=== PATIENT | female | born 1960 | race Caucasian/White ===

== ENCOUNTER 2024-10-07 07:38 | Outpatient (RCR) | payer MEDICARE, OTHER, SELFPAY | END 2024-10-07 23:59 | disposition home or self-care (01) | LOC: RPT 07:38 | PROVIDERS: ATTENDING PHYSICIAN Obstetrics & Gynecology; FAMILY PHYSICIAN Family Medicine | DX: N32.81 Overactive bladder (principal); M62.89 Other specified disorders of muscle; N81.10 Cystocele, unspecified; N81.89 Other female genital prolapse; Z73.6 Limitation of activities due to disability; R10.2 Pelvic and perineal pain; G62.9 Polyneuropathy, unspecified; M54.50 Low back pain, unspecified; G89.29 Other chronic pain | CPT/HCPCS: 97163; 97530 ==

== ENCOUNTER 2024-11-14 13:06 | Outpatient (RCR) | payer MEDICARE, OTHER, SELFPAY | END 2024-11-14 23:59 | disposition home or self-care (01) | LOC: RPT 13:06 | PROVIDERS: ATTENDING PHYSICIAN Obstetrics & Gynecology; FAMILY PHYSICIAN Family Medicine | DX: N32.81 Overactive bladder (principal); M62.89 Other specified disorders of muscle; N81.10 Cystocele, unspecified; N81.89 Other female genital prolapse; Z73.6 Limitation of activities due to disability; R10.2 Pelvic and perineal pain; G62.9 Polyneuropathy, unspecified; M54.50 Low back pain, unspecified; G89.29 Other chronic pain | CPT/HCPCS: 97010; 97014; 97110; 97112; 97140; 97530 ==

== ENCOUNTER → 2024-11-22 08:59 | Outpatient (REF) | payer MEDICARE, OTHER, SELFPAY ==
[2024-11-22 10:59] LABS: Hematocrit 39.0 % (37.0-47.0); Hemoglobin 13.5 g/dL (12.0-16.0); Mean Corp Hgb Conc. 34.6 g/dL (33.0-37.0); Mean Corpuscular Volume 97.3 fL (81.0-99.0); Platelet Count 296 10^3/uL (130-400); Red Cell Dist. Width 12.0 % (11.5-14.5)
[2024-11-22 11:26] LABS: Blood Urea Nitrogen 15 mg/dl (7-17); Calcium 9.8 mg/dl (8.4-10.2); Carbon Dioxide 29 mmol/L (22-30); Chloride 100 mmol/L (98-107); Glucose 91 mg/dl (70-99); Potassium 4.5 mmol/L (3.5-5.1); Sodium 136 mmol/L (135-145); eGFR > 60.00
== END ==
LOC: SDSPAT 08:59
PROVIDERS: ATTENDING PHYSICIAN Obstetrics & Gynecology; FAMILY PHYSICIAN Nurse Practitioner
DX: Z01.818 Encounter for other preprocedural examination (principal)
CPT/HCPCS: 36415; 80048; 85027; 86850; 86900; 86901; 93005

== ENCOUNTER 2024-11-29 06:23 | Day surgery (SDC) | payer MEDICARE, OTHER, SELFPAY ==
[2024-11-22 14:18] VITALS: BMI 19.7
--- NOTE | 2024-11-22 16:17 | PTCARENOTE ---
Abnormal ECG done 11/22/[address] Donaldson, no further interventions requested.
[2024-11-29] VITALS (15 sets, daily range): BP systolic 114–157; BP diastolic 67–85; BMI 19.7
[2024-11-29] MEDS: NORMOSOL-R/PLASMALYTE-A 1000 IV (09:24)
[2024-11-29] MEDS: HEPARIN 5000 UNITS SC (09:24)
[2024-11-29] MEDS: TYLENOL 1000 MG PO (09:41)
[2024-11-29] MEDS: SUBLIMAZE 25 MCG IV ×2 (13:38→13:52)
[2024-11-29] MEDS: MOTRIN 600 MG PO (14:39)
[2024-11-29] MEDS: ROXICODONE 5 MG PO (16:06)
[2024-11-29] MEDS: TYLENOL 650 MG PO (17:24)
== END 2024-11-29 17:55 | disposition home or self-care (01) ==
LOC: SDS 06:23
PROVIDERS: ATTENDING PHYSICIAN Obstetrics & Gynecology; FAMILY PHYSICIAN Nurse Practitioner
DX: N99.3 Prolapse of vaginal vault after hysterectomy (principal); N39.3 Stress incontinence (female) (male); N95.8 Other specified menopausal and perimenopausal disorders; Y83.8 Other surgical procedures as the cause of abnormal reaction of the patient, or of later complication, without mention of misadventure at the time of the procedure; N36.41 Hypermobility of urethra
CPT/HCPCS: 57425; 57288; 58661; 86900; 86901; 88304; C1763; C1771